=== PATIENT | female | born 1990 | race Caucasian/White ===

== ENCOUNTER → 2020-02-17 | Outpatient (CLI) | payer BC ==
[2020-02-17 10:44] LABS: HGB 12.2 gm/dL (13.0-17.5); MCH 30.8 pg (25.0-35.0); MCHC 33.8 g/dL (31.0-37.0); MCV 91.3 fL (80.0-100.0); Mean Platelet Volume 8.1; Platelet Count 232 k/uL (150-450); RBC 3.94 m/uL (4.30-5.90); RDW 13.5 % (11.5-15.5); WBC 7.9 k/uL (3.8-10.6)
[2020-02-17 17:36] LABS: Hepatitis B Surface Antigen Non-Reactive (Non-Reactive)
[2020-02-17 18:58] LABS: Hemoglobin A1C 5.5 % (4.0-6.0)
== END | disposition home or self-care (01) ==
LOC: LABWHC1 09:14
PROVIDERS: ATTEND Obstetrics & Gynecology
DX: Z34.81 Encounter for supervision of other normal pregnancy, first trimester (principal)
CPT/HCPCS: 36415; 82565; 82947; 83036; 85027; 86762; 86780; 86850; 86900; 86901; 87340

== ENCOUNTER 2020-06-03 10:27 | Outpatient (CLI) | payer OTHER ==
[2020-06-03 11:04] VITALS: RESP 16; TEMP 97.1
[2020-06-03 11:19] VITALS: BP 116/79; PULSE 100
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
== END 2020-06-03 11:15 | disposition home or self-care (01) ==
LOC: FBPOP 10:27
PROVIDERS: ATTEND Obstetrics & Gynecology
DX: Z36.89 Encounter for other specified antenatal screening (principal); Z3A.23 23 weeks gestation of pregnancy
CPT/HCPCS: 59025; 76805; 99213

== ENCOUNTER 2020-07-20 06:30 | Inpatient (IN) | payer BC, OTHER ==
[2020-09-15 10:35] VITALS: BMI 34.2
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
[2020-09-20] MEDS ORDERED: LACTATED RINGERS 1,000 ML IV SCH (06:37)
[2020-09-20] MEDS ORDERED: LACTATED RINGERS 1,000 ML IV ONE (06:37)
[2020-09-20] MEDS ORDERED: CITRIC ACID-SODIUM CITRATE 15 ML CUP PO ONE (06:37)
[2020-09-20 06:55] LABS: Basophils % (A) 0 %; Eosinophils # (A) 0.2 k/uL (0-0.7); Eosinophils % (A) 2 %; HCT 37.1 % (34.0-46.0); HGB 12.7 gm/dL (11.4-16.0); Lymphocytes # (A) 1.4 k/uL (1.0-4.8); Lymphocytes % (A) 16 %; MCH 31.7 pg (25.0-35.0); MCHC 34.2 g/dL (31.0-37.0); MCV 92.9 fL (80.0-100.0); Mean Platelet Volume 9.9; Monocytes # (A) 0.5 k/uL (0-1.0); Monocytes % (A) 5 %; Neutrophils # (A) 6.7 k/uL (1.3-7.7); Neutrophils % (A) 76 %; Platelet Count 151 k/uL (150-450); RBC 3.99 m/uL (3.80-5.40); RDW 14.3 % (11.5-15.5); WBC 8.8 k/uL (3.8-10.6)
[2020-09-20] MEDS ORDERED: KETOROLAC 15 MG/ML 1 ML VIAL ONE (07:50)
[2020-09-20] MEDS ORDERED: OXYTOCIN 10 UNIT/ML 1 ML VIAL ONE (07:50)
[2020-09-20] MEDS ORDERED: PHENYLEPHRINE-0.9% NACL SYG 1,000 MCG/10 ML SYRINGE ONE (07:50)
[2020-09-20] MEDS ORDERED: MORPHINE SULFATE (PF) 0.3 MG/0.3 ML SYR ONE (07:50)
[2020-09-20] MEDS ORDERED: ONDANSETRON 4 MG/2 ML VIAL ONE (07:50)
[2020-09-20] MEDS ORDERED: DEXAMETHASONE SOD PHOSPHATE 4 MG/ML 1 ML VIAL ONE (07:50)
[2020-09-20] MEDS ORDERED: SIMETHICONE 80 MG CHEWABLE PO PRN (08:36)
[2020-09-20] MEDS ORDERED: OXYTOCIN 30 UNITS/500 ML NS 30 UNIT in SALINE 1 500ML.BAG IV SCH (08:36)
[2020-09-20] MEDS ORDERED: METOCLOPRAMIDE 5 MG/ML 2 ML VIAL IVP PRN (08:36)
[2020-09-20] MEDS ORDERED: ONDANSETRON 4 MG/2 ML VIAL IVP PRN (08:36)
[2020-09-20] MEDS ORDERED: NALOXONE 0.4 MG/ML 1 ML VIAL IV PRN (08:36)
[2020-09-20] MEDS ORDERED: diphenhydrAMINE 25 MG CAP PO PRN (08:36)
[2020-09-20] MEDS ORDERED: ZOLPIDEM 5 MG TAB PO PRN (08:36)
[2020-09-20] MEDS ORDERED: diphenhydrAMINE 50 MG/ML 1 ML VIAL IVP PRN (08:36)
[2020-09-20] MEDS ORDERED: LANOLIN CREAM 5 GM TUBE TOPICAL PRN (08:36)
[2020-09-20] MEDS ORDERED: HYDROcodone/APAP 5-325MG 1 EACH TAB PO PRN (08:36)
--- NOTE | 2020-09-20 08:43 | P.OP ---
Date of Procedure: 09/20/20 Preoperative Diagnosis: #1: 39 and one sevenths week intrauterine . #2: Previous severe shoulder dystocia. #3: Multi parity desires permanent sterilization Postoperative Diagnosis: Same, macrosomia Procedure(s) Performed: Primary low transverse section and bilateral partial salpingectomy Anesthesia: spinal Surgeon: Juan Jose Solorzano Hearth Feeder #1: Alvina Tam Estimated Blood Loss (ml): 800 Pathology: other (Bilateral fallopian tube segments) Condition: stable Disposition: floor Indications for Procedure: Please see dictated H&P for intimate details of this patient's admission. In brief summary this is a pleasant 30-year-old 2 para 1 female 39 and one sevenths weeks gestation admitted to labor and delivery for primary section and permanent sterilization. Patient's history is such that she had a significant severe shoulder dystocia in the past and we discussed management for delivery this and elected to proceed with primary section. Patient is also requested permanent sterilization. She understands this is considered permanent was a failure rate of less than 5 per thousand procedures done. Patient understands inherently surgery has risks including risks of infection, bleeding, possible injury bowel, bladder, vessels, and/or other organs. All the patient's questions are answered written consent is obtained. Operative Findings: This is a vigorous viable female Apgars 9 and 9 delivery time is 0808 hrs. has spontaneous respirations and good cry. weight was 9 lbs. 8 oz. Description of Procedure: This patient has a Lewis catheter placed to straight drain. She subsequently taken to the operating room where she sat up and spinal anesthetic is administered without incident. An adequate level of anesthesia she has abdominal prep and drape. Scalpels and taken Pfannenstiel skin incision is then made. A second scalpel is taken down the fascia and the fascia scored with a knife. Fascial incision extended bilaterally using the Smith scissors. Fascia is then dissected off the rectus muscles sharply. Rectus muscles are the peritoneum was identified and entered sharply. Peritoneal incision extended superior and inferior without difficulty. Bladder blade is then placed. Bladder peritoneum was taken sharply off the lower uterine segment. Scalpels and taken a low transverse uterine incision is then made. Using a hemostat I enter the uterine cavity bluntly. There is loss of a copious amount of clear fluid. With this done the incision is then extended bluntly. The 's head is then pushed through the incision with fundal pressure. Mouth and nares are bulb suctioned. There is no evidence of a nuchal cord. With gentle pressure we then have delivery the rest this 's body. This is a vigorous viable female Apgars are 9 and 9 delivery time is 0808 hrs. After delivery of the the umbilical cords doubly clamped and cut. It appears to be trivasc ular. The placenta is then manually extracted intact. Uterus is then externalized and uterine incision demarcated with Santa clamps. Uterine incision then closed using 0 Vicryl running locked fashion 2 layers. The bladder peritoneum was then closed using a 3-0 Vicryl running fashion. Excellent hemostasis is noted. Then turned my attention left fallopian tube approximately 4 cm from the cornual insertion a small window made to the mesial salpinx with Bovie cautery. Using a 2-0 silk I doubly ligate a 2 cm segment of the tube is excised. Cauterization done of the tubal ends. Similar results on the right side with similar results. With this done excess fluid is removed from the abdomen and pelvis. Uterus placed back into the abdomen. Parietal peritoneum was then identified. I inspected fallopian tubes once again and all appears hemostatic. Parietal peritoneum closed using 0 Vicryl running fashion. Rectus muscles reapproximated in 0 Vicryl interrupted fashion. Fascial incision then closed using 0 PDS. Fascial incision is intact and hemostatic. Subcutaneous tissues and closed using a 3-0 Vicryl. Skin is and closed using brenda. All counts are correct 3. There are no complications. Infant and mother are stable in delivery room.
[2020-09-20] MEDS: SENNOSIDES-DOCUSATE SODIUM 1 EACH TAB PO SCH ×2 (13:11→20:12)
[2020-09-20] MEDS: KETOROLAC 15 MG/ML 1 ML VIAL IVP PRN ×2 (15:47→22:54)
--- NOTE | 2020-09-21 06:21 | P.PNOBGPC ---
Subjective - Subjective Patient reports: Reports appetite normal, Reports voiding normally, Reports pain well controlled, Reports ambulating normally : doing well Objective - Vital Signs Latest vital signs: Vital Signs Temp Pulse Resp BP Pulse Ox 09/21/20 04:00 98.4 F 84 16 112/76 98 09/21/20 00:00 98.0 F 74 16 105/67 95 09/20/20 20:00 97.5 F L 85 16 120/69 95 09/20/20 16:00 98.1 F 83 15 116/75 97 09/20/20 12:00 98.6 F 79 16 135/83 09/20/20 10:38 83 16 122/81 99 09/20/20 10:08 78 16 119/80 98 09/20/20 09:38 78 16 111/73 96 09/20/20 09:23 73 16 108/69 96 09/20/20 09:08 81 16 110/74 97 09/20/20 08:53 97.5 F L 78 16 109/70 95 09/20/20 08:38 90 16 113/76 98 09/20/20 06:39 97.7 F 104 H 16 134/98 100 Intake and Output 09/20/20 09/20/20 09/21/20 14:59 22:59 06:59 Intake Total 300 100 Output Total 800 2100 Balance -500 -2100 100 Intake: Oral 300 100 Output: Urine 800 2100 Uretheral (Lewis) 1000 Other: Voiding Method Indwelling Catheter Indwelling Catheter # Voids 1 - Exam Lungs: bilateral: normal Chest: Normal S1, Normal S2 Extremities: Present: normal Abdomen: Present: normal appearance, soft. Absent: distention, tenderness Incision: Present: normal, dry, intact Uterus: Present: normal, firm Assessment and Plan Assessment: Postoperative day #1. Patient is resting without complaints. Vital signs are stable and she is afebrile. Uterus is firm nontender she's having normal lochia. Her incision is intact and dry. CBC is pending at time of this dictation. Patient is tolerating regular diet and urinating without difficulty. Plan today is to allow the patient shower, encourage ambulation, check a CBC, and continue routine postoperative care. (1) 39 weeks gestation of Current Visit: No Status: Acute Code(s): Z3A.39 - 39 WEEKS GESTATION OF SNOMED Code(s): 63031207 (2) Prior shoulder dystocia at delivery in first trimester, antepartum Current Visit: No Status: Acute Code(s): O09.291 - SUPRVSN OF PREG W POOR REPRODCTV OR OBSTET HX, FIRST TRI SNOMED Code(s): 555234548 (3) Family planning Current Visit: No Status: Acute Code(s): Z30.09 - ENCOUNTER FOR OTH GENERAL CNSL AND ADVICE ON CONTRACEPTION SNOMED Code(s): 913954665
--- NOTE | 2020-09-21 06:47 | P.PN ---
Progress Note - Text Progress Note Date: 09/21/20 Bernie is postop day 1 from surgery section. She had a spinal with Duramorph. She reports her pain is under good control. She's been ambulating. She has return of bowel function. She is doing well. No lower extremity weakness. No bowel or bladder incontinence.
[2020-09-21 07:35] LABS: Basophils % (A) 0 %; Eosinophils # (A) 0.1 k/uL (0-0.7); Eosinophils % (A) 1 %; HGB 11.2 gm/dL (11.4-16.0); Lymphocytes # (A) 1.9 k/uL (1.0-4.8); Lymphocytes % (A) 18 %; MCH 32.1 pg (25.0-35.0); MCV 94.5 fL (80.0-100.0); Mean Platelet Volume 9.2; Monocytes # (A) 0.5 k/uL (0-1.0); Monocytes % (A) 5 %; Neutrophils # (A) 7.6 k/uL (1.3-7.7); Neutrophils % (A) 75 %; Platelet Count 138 k/uL (150-450); RBC 3.49 m/uL (3.80-5.40); RDW 14.3 % (11.5-15.5); WBC 10.2 k/uL (3.8-10.6)
[2020-09-21] MEDS: SENNOSIDES-DOCUSATE SODIUM 1 EACH TAB PO SCH ×2 (08:05→19:48)
[2020-09-21] MEDS: KETOROLAC 15 MG/ML 1 ML VIAL IVP PRN (08:05)
[2020-09-21] MEDS: IBUPROFEN 600 MG TAB PO PRN ×2 (14:11→19:48)
[2020-09-21] MEDS: ACETAMINOPHEN TAB 325 MG TAB PO PRN ×2 (16:11→23:11)
[2020-09-22] MEDS: IBUPROFEN 600 MG TAB PO PRN ×3 (02:41→14:37)
--- NOTE | 2020-09-22 06:34 | P.PNOBGPC ---
Subjective - Subjective Patient reports: Reports appetite normal, Reports voiding normally, Reports pain well controlled, Reports ambulating normally : doing well Objective - Vital Signs Latest vital signs: Vital Signs Temp Pulse Resp BP Pulse Ox 09/21/20 23:21 98.5 F 78 16 112/77 09/21/20 16:00 97.6 F 87 18 124/82 100 09/21/20 08:00 98.6 F 86 18 118/76 98 Intake and Output 09/21/20 09/21/20 09/22/20 14:59 22:59 06:59 Other: Voiding Method Toilet # Voids 1 1 2 - Exam Lungs: bilateral: normal Chest: Normal S1, Normal S2 Extremities: Present: normal Abdomen: Present: normal appearance, soft. Absent: distention, tenderness Incision: Present: normal, dry, intact Uterus: Present: normal, firm - Labs Labs: Abnormal Lab Results - Last 24 Hours (Table) 09/21/20 Range/Units 07:05 RBC 3.49 L (3.80-5.40) m/uL Hgb 11.2 L (11.4-16.0) gm/dL Hct 33.0 L (34.0-46.0) % Plt Count 138 L (150-450) k/uL Assessment and Plan Assessment: Postoperative day #2. Patient is resting without new complaints. Vital signs are stable and she is afebrile. Uterus is firm nontender and her incision is intact and dry. Patient is tolerating regular diet and ambulating without difficulty. Plan today is to continue routine care she is considering going home later today if she is feeling well otherwise will stay until tomorrow. (1) 39 weeks gestation of Current Visit: No Status: Acute Code(s): Z3A.39 - 39 WEEKS GESTATION OF SNOMED Code(s): 36077131 (2) Prior shoulder dystocia at delivery in first trimester, antepartum Current Visit: No Status: Acute Code(s): O09.291 - SUPRVSN OF PREG W POOR REPRODCTV OR OBSTET HX, FIRST TRI SNOMED Code(s): 380561578 (3) Family planning Current Visit: No Status: Acute Code(s): Z30.09 - ENCOUNTER FOR OTH GENERAL CNSL AND ADVICE ON CONTRACEPTION SNOMED Code(s): 381101931
--- NOTE | 2020-09-22 06:42 | P.DS ---
Providers Date of admission: 09/20/20 05:48 Expected date of discharge: 09/22/20 Attending physician: Juan Jose Solorzano Primary care physician: Stated None - Discharge Diagnosis(es) (1) 39 weeks gestation of Current Visit: No Status: Acute (2) Prior shoulder dystocia at delivery in first trimester, antepartum Current Visit: No Status: Acute (3) Family planning Current Visit: No Status: Acute Hospital Course: Please see dictated H&P for intimate details of this patient's admission. Brief summary is a pleasant 30-year-old 2 para 1 female 39 weeks gestation admitted to labor and delivery for primary section secondary to history of severe shoulder dystocia and also requested permanent sterilization. Patient underwent a primary low transverse section and bilateral partial salpin gectomy for a viable female . Please see dictated delivery note. Postoperatively patient did well felt to be stable for discharge home follow up with me in 1 week. Procedures: Primary low transverse section and bilateral partial salpingectomy Plan - Discharge Summary Discharge Rx Participant: No New Discharge Prescriptions: New Ibuprofen [Motrin] 600 mg PO Q6HR PRN #30 tab PRN Reason: Mild Pain Or Fever >= 100.5 HYDROcodone/APAP 5-325MG [Berwick 5-325] 1 each PO Q4HR PRN #18 tab PRN Reason: Moderate Pain No Action Pnv No.95/Ferrous Fum/Folic AC [ Multivitamin Tablet] 1 tab PO DAILY Discharge Medication List Pnv No.95/Ferrous Fum/Folic AC [ Multivitamin Tablet] 1 tab PO DAILY 06/03/20 [History] HYDROcodone/APAP 5-325MG [Berwick 5-325] 1 each PO Q4HR PRN #18 tab 09/22/20 [Rx] Ibuprofen [Motrin] 600 mg PO Q6HR PRN #30 tab 09/22/20 [Rx] Follow up Appointment(s)/Referral(s): Juan Jose Solorzano MD [STAFF PHYSICIAN] - 09/28/20 9:15 am (Patient also has a post appointment on November 02 at 11 AM.) Patient Instructions/Handouts: (DC) Activity/Diet/Wound Care/Special Instructions: No heavy lifting or strenuous activity for 6 weeks. Please call if any fever, chills, excessive vaginal bleeding, and/or abdominal pain. Discharge Disposition: HOME SELF-CARE
[2020-09-22] MEDS: SENNOSIDES-DOCUSATE SODIUM 1 EACH TAB PO SCH (08:05)
[2020-09-22] MEDS: ACETAMINOPHEN TAB 325 MG TAB PO PRN ×2 (08:07→12:59)
[2020-09-22 08:47] VITALS: BP 120/84; PULSE 81; RESP 18; TEMP 97.7
== END 2020-09-22 15:24 | disposition home or self-care (01) | DRG 784 ==
LOC: 4FBP 09-20 05:48
PROVIDERS: ADMIT Obstetrics & Gynecology; ATTEND Obstetrics & Gynecology
PROC: 10D00Z1 Extraction of Products of Conception, Low, Open Approach (ICD-10-PCS; principal; 2020-09-20 08:00)
PROC: 0UB70ZZ Excision of Bilateral Fallopian Tubes, Open Approach (ICD-10-PCS; principal; 2020-09-20 08:00)
DX: O36.63X0 Maternal care for excessive fetal growth, third trimester, not applicable or unspecified (principal); O99.354 Diseases of the nervous system complicating childbirth; G43.909 Migraine, unspecified, not intractable, without status migrainosus; Z37.0 Single live birth; Z3A.39 39 weeks gestation of pregnancy; Z30.2 Encounter for sterilization; Z79.899 Other long term (current) drug therapy
CPT/HCPCS: 85025; 86850; 86900; 86901; 88302

== ENCOUNTER → 2022-11-29 | Outpatient (CLI) | payer BC ==
--- NOTE | 2022-11-29 13:39 | MM ---
Reason for Exam: Clinical finding. Baseline mammogram. Indicated Problems: Lump or thickening of the right side for 2 Month(s). Patient History: Menarche at age 18. First Full-Term at age 27. Patient has history of breast feeding. Last menstrual period: 11/03/2022 Prior Study Comparison: Patient's first Mammogram. No prior studies available for comparison. Tissue Density: The breast tissue is heterogeneously dense. This may lower the sensitivity of mammography. Findings: Analyzed By CAD. The palpable marker placed along the upper outer quadrant of the right breast. No significant mass, suspicious microcalcification, or other discrete abnormality is seen. Overall Assessment: Incomplete: need additional imaging evaluation, BI-RAD 0 Management: Diagnostic Breast Ultrasound of the right breast. For the patient's palpable finding. Electronically signed and approved by: Joby Hall M.D. Radiologist
--- NOTE | 2022-11-29 13:52 | USB ---
Reason for Exam: Clinical finding. Patient History: Menarche at age 18. First Full-Term at age 27. Patient has history of breast feeding. Technique: Method: Targeted. Findings: The upper section of the breast of the right breast, the axilla of the right breast and the retroareolar of the right breast were scanned. Targeted ultrasound right breast 11-12 o'clock including the subareolar region and axilla. No solid or cystic lesion with particular attention to the patient's palpable site. No duct ectasia or axillary lymphadenopathy. Overall Assessment: Negative, BI-RAD 1 Management: Screening Mammogram of both breasts at age 42. Unless there is a clinical indication to start sooner. Further clinical management of any suspicious palpable abnormalities. Patient should continue monthly self breast exams. Results were given to the patient verbally at the time of exam. Electronically signed and approved by: Joby Hall M.D. Radiologist
== END | disposition home or self-care (01) ==
LOC: RADMAMWWP 12:47
PROVIDERS: ATTEND Obstetrics & Gynecology
DX: R92.8 Other abnormal and inconclusive findings on diagnostic imaging of breast (principal)
CPT/HCPCS: 77062; 77066

== ENCOUNTER → 2023-06-13 | Outpatient (CLI) | payer BC ==
--- NOTE | 2023-06-13 20:26 | MR ---
EXAMINATION TYPE: MR brain wo con DATE OF EXAM: 06/13/2023 7:33 PM CLINICAL INDICATION:Female, 32 years old with history of G44.52 PERSISTENT HEADACHE; PHH, COMPARISON: None. TECHNIQUE: Multi planar, multi sequence imaging was performed through the brain including: T1, T2, In version recovery, Diffusion weighted imaging, and gradient echo imaging. No gadolinium was given. FINDINGS: Mild dilation of ventricular system most pronounced in the right lateral ventricle. The cook-white junctions, ventricular system, and cisterns appear unremarkable.. Midline structures s how no abnormality. Diffusion-weighted imaging shows no evidence of restricted diffusion. The suscept ibility weighted images do not reveal any evidence for micro-hemorrhage. The bone marrow signal is within normal limits. Paranasal sinuses and mastoid air cells: No significant paranasal sinus disease. Visualized orbits: Orbital contents are intact. IMPRESSION: 1. No evidence of intracranial mass or acute/subacute infarct. 2. Slight asymmetric dilated right lateral ventricle which is nonspecific.
== END | disposition home or self-care (01) ==
LOC: RADMRIMAIN 18:24
PROVIDERS: ATTEND Pediatrics
DX: G44.52 New daily persistent headache (NDPH) (principal); I51.7 Cardiomegaly
CPT/HCPCS: 70551